=== PATIENT | male | born 1995 | race Caucasian/White ===

== ENCOUNTER → 2023-08-09 | Outpatient (CLI) | payer OTHER | LOC: M RAD 11:28 | PROVIDERS: ATTEND Physician Assistant | DX: N50.811 Right testicular pain (principal) ==

== ENCOUNTER 2024-05-02 06:21 | Emergency (ER) | payer OTHER ==
[~2024-05-02] VITALS: Ht 175.3 cm; Wt 86.4 kg
[2024-05-02 07:21] LABS: BASO # 0.1 10^3/uL (0.0-0.2); BASO % 1.6 % (0.0-1.0); EOS # 0.5 10^3/uL (0.0-0.5); EOS % 5.8 % (0.0-3.0); HEMATOCRIT 48.1 % (42.0-52.0); HEMOGLOBIN 16.1 g/dl (13.5-17.5); LYMPH # 2.3 10^3/uL (1.5-5.0); LYMPH % 28.5 % (24.0-44.0); MEAN CORPUSCULAR HEMOGLOBIN 29.8 pg (27.0-33.0); MEAN CORPUSCULAR HGB CONC 33.5 g/dl (32.0-36.5); MEAN CORPUSCULAR VOLUME 88.9 fl (80.0-96.0); MONO # 0.6 10^3/uL (0.0-0.8); MONO % 7.8 % (2.0-8.0); NEUTROPHILS # 4.4 10^3/uL (1.5-8.5); NEUTROPHILS % 55.2 % (36.0-66.0); PLATELET COUNT, AUTOMATED 305 10^3/uL (150-450); RED BLOOD COUNT 5.41 10^6/uL (4.30-6.10)
[2024-05-02 07:58] LABS: LIPASE 35 U/L (12-53)
[2024-05-02 08:01] LABS: ALBUMIN 4.3 G/DL (3.2-5.2); ALKALINE PHOSPHATASE 114 U/L (46-116); ALT/SGPT 35 U/L (7.0-40); AST/SGOT 11 U/L (<34); BILIRUBIN,DIRECT 0.2 MG/DL (<0.4); BILIRUBIN,TOTAL 0.8 MG/DL (0.3-1.2); BLOOD UREA NITROGEN 15 MG/DL (9-23); CALCIUM LEVEL 9.9 MG/DL (8.5-10.1); CARBON DIOXIDE LEVEL 30 MMOL/L (20-31); CHLORIDE LEVEL 106 MMOL/L (98-107); CREATININE FOR GFR 0.81 MG/DL (0.70-1.30); GLOMERULAR FILTRATION RATE > 60.0 (>60); GLUCOSE, FASTING 98 MG/DL (60-100); POTASSIUM SERUM 4.1 MMOL/L (3.5-5.1); SODIUM LEVEL 141 MMOL/L (136-145); TOTAL PROTEIN 7.1 G/DL (5.7-8.2)
[2024-05-02] MEDS: MAALOX 30 ML SUSP *UDC PO ONE (08:35)
[2024-05-02] MEDS ORDERED: ISOVUE-370 76% 100ML VIAL As Ordered ONE (09:20)
[2024-05-02 09:50] VITALS: BP 132/81; TEMP 96.7; O2SAT 98
== END 2024-05-02 09:46 | disposition home or self-care (01) ==
LOC: M ED 06:21
DX: R91.1 Solitary pulmonary nodule (principal); K80.66 Calculus of gallbladder and bile duct with acute and chronic cholecystitis without obstruction; F10.10 Alcohol abuse, uncomplicated
CPT/HCPCS: 36415; 74177; 80047; 80048; 80076; 81001; 83690; 85025; 99284; Q9967

== ENCOUNTER 2024-08-30 23:39 | Emergency (ER) | payer OTHER ==
[~2024-08-30] VITALS: Ht 175.3 cm; Wt 94.5 kg
[2024-08-31 00:49] LABS: BASO # 0.1 10^3/uL (0.0-0.2); BASO % 0.9 % (0.0-1.0); EOS # 0.2 10^3/uL (0.0-0.5); EOS % 1.7 % (0.0-3.0); HEMATOCRIT 45.8 % (42.0-52.0); HEMOGLOBIN 15.7 g/dl (13.5-17.5); LYMPH # 1.8 10^3/uL (1.5-5.0); LYMPH % 14.4 % (24.0-44.0); MEAN CORPUSCULAR HEMOGLOBIN 29.6 pg (27.0-33.0); MEAN CORPUSCULAR HGB CONC 34.3 g/dl (32.0-36.5); MEAN CORPUSCULAR VOLUME 86.4 fl (80.0-96.0); MONO # 0.8 10^3/uL (0.0-0.8); MONO % 6.5 % (2.0-8.0); NEUTROPHILS # 9.6 10^3/uL (1.5-8.5); NEUTROPHILS % 75.6 % (36.0-66.0); PLATELET COUNT, AUTOMATED 274 10^3/uL (150-450); WHITE BLOOD COUNT 12.7 10^3/uL (4.0-10.0)
[2024-08-31 01:13] LABS: LIPASE 34 U/L (12-53)
[2024-08-31 01:16] LABS: ALBUMIN 4.4 G/DL (3.2-5.2); ALKALINE PHOSPHATASE 117 U/L (46-116); ALT/SGPT 30 U/L (7.0-40); AST/SGOT 21 U/L (<34); BILIRUBIN,DIRECT 0.1 MG/DL (<0.4); BILIRUBIN,TOTAL 0.6 MG/DL (0.3-1.2); BLOOD UREA NITROGEN 16 MG/DL (9-23); CARBON DIOXIDE LEVEL 27 MMOL/L (20-31); CHLORIDE LEVEL 106 MMOL/L (98-107); CREATININE FOR GFR 0.77 MG/DL (0.70-1.30); GLOMERULAR FILTRATION RATE > 60.0 (>60); GLUCOSE, FASTING 99 MG/DL (60-100); POTASSIUM SERUM 4.1 MMOL/L (3.5-5.1); SODIUM LEVEL 140 MMOL/L (136-145); TOTAL PROTEIN 7.5 G/DL (5.7-8.2)
[2024-08-31 02:55] VITALS: TEMP 97
[2024-08-31] MEDS ORDERED: ISOVUE-370 76% 100ML VIAL As Ordered ONE (05:18)
[2024-08-31 08:00] VITALS: BP 124/80
[2024-08-31 08:15] VITALS: O2SAT 96
== END 2024-08-31 08:30 | disposition home or self-care (01) ==
LOC: EDUNIT# 23:39 → M ED 23:39 → EDBD 23:39 → M ED 08-31 08:30
DX: K80.50 Calculus of bile duct without cholangitis or cholecystitis without obstruction (principal); F10.10 Alcohol abuse, uncomplicated
CPT/HCPCS: 36415; 74177; 80048; 80076; 83690; 85025; 99284; Q9967